=== PATIENT | female | born 2000 | race Caucasian/White ===

== ENCOUNTER 2021-03-12 15:57 | Day surgery (SDC) | payer BC ==
[~2021-03-12] VITALS: Ht 172.7 cm; Wt 95.7 kg
[2021-03-12] VITALS (8 sets, daily range): BP systolic 125–141; BP diastolic 59–81; PULSE 100–131; TEMP 98.1–98.4
--- NOTE | 2021-03-12 20:30 | NUR ---
2030 NORCO X1 PO GIVEN FOR C/O MOD PAIN AT INC SITE. AWAKE AND VISITING WITH FAMILY. PO TAKEN AND RETAINED. IV ABX STARTED
[2021-03-13 00:30] VITALS: BP 100/48; PULSE 112; TEMP 99.9
[2021-03-13 02:15] VITALS: TEMP 98.9
[2021-03-13 04:00] VITALS: BP 118/51; PULSE 99; TEMP 99.2
[2021-03-13 08:30] VITALS: BP 121/72; PULSE 92; TEMP 98.6
--- NOTE | 2021-03-13 09:25 | NUR ---
Initial visit attempt; Manager Mobile left card informing patient of the availability of spiritual care and offering God's blessings.
[2021-03-13 12:15] VITALS: BP 114/68; PULSE 72; TEMP 98.8
[2021-03-13] MEDS ORDERED: AMOXICILLIN 8751 TAB PO (13:52)
--- NOTE | 2021-03-13 14:30 | NUR ---
Discharge instructions and follow up care reviewed with pt and mother at the bedside. Pt verbalized an understanding, agreed with the plan and states no questions or concerns at this time. Pt discharged home via wheelchair escorted out by family and RN.
== END 2021-03-13 14:35 | disposition home or self-care (01) ==
LOC: OB 15:57 → SDCO 15:57 → OB 19:30 → SDCO 03-13 14:35
DX: K35.890 Other acute appendicitis without perforation or gangrene (principal); J45.909 Unspecified asthma, uncomplicated; Z79.899 Other long term (current) drug therapy; Z83.3 Family history of diabetes mellitus
CPT/HCPCS: OP; G0378; J0295; J7120

== ENCOUNTER → 2022-07-10 | Outpatient (CLI) | payer BC ==
[~2022-07-10] MED LIST: AMOXICILLIN 8751 TAB PO
== END ==
LOC: COL.RAD 12:35
DX: M25.572 Pain in left ankle and joints of left foot (principal)